=== PATIENT | male | born 1995 | race Caucasian/White ===

== ENCOUNTER 2022-08-02 11:58 | Emergency (ER) | payer SELFPAY ==
[2022-08-02 12:20] VITALS: BP 114/72; PULSE 85; RESP 14; TEMP 36.8; O2SAT 96; BMI 25.8
[2022-08-02 12:47] LABS: UTC Strep Screen (Rapid) Negative (Negative)
[2022-08-02 12:48] LABS: UTC Influenza A Antigen Negative (Negative); UTC Influenza B Antigen Negative (Negative)
--- NOTE | 2022-08-02 13:19 | EXP.UTC ---
Discharge Plan Disposition Patient Disposition: Home, Self-Care Condition: Good Prescriptions Prescriptions: New azithromycin [Zithromax Z-Manjinder] 250 mg tablet See Rx Instructions .ROUTE .COMPLEX 5 Days Qty: 6 0RF Rx Instructions: For 250 mg dose pack: take 500 mg today (day 1), then 250 mg for 4 days (days 2-5) methylprednisolone [Medrol (Manjinder)] 4 mg tablets,dose pack See Rx Instructions .Route .COMPLEX 6 Days Qty: 21 0RF Rx Instructions: taper pack; Referrals Follow up/Referrals: Provider,Referral, MD [Primary Care Provider] - See instructions Activity Restrictions/Add. Instructions Additional Instructions/Restrictions: *Monitor Temp, Over the counter Motrin or Tylenol as directed/as needed Tylenol every 4 hours and Motrin every 6 hours (as long as your family doctor has told you that you can take it) for fever or pain. and straight to ER if unable to lower temp less than 101.0 after medication given *Warm salt water gargles may help to soothe the throat *Throat Lozenges? *Warm fluids like tea with honey may help to soothe the throat? *Sleep elevated *Humidifier/Vaporizer Your throat swab was sent for culture. Those results are typically sent to your primary care. Be sure to follow up in 2-3 days with your family doctor/primary care physician if no improvement so they can review those result and treat if necessary. If you don?t have a primary care doctor, I recommend you get one but in the mean time, you will have to return to a walk in clinic Follow up IMMEDIATELY for new or worsening symptoms or no Noticeable improvement over the next 48-72 hours. 911 for difficulty breathing or swallowing Clinical Impressions Clinical Impression: Acute bacterial tonsillitis Instructions Patient Instructions: Sore Throat, Methylprednisolone, Azithromycin Discharge ED Provider: Vicki Negron [facility] General Stated complaint: Sore throat Mode of Arrival: Ambulatory Source of Information: Patient Limitations: No Limitations Time Seen by Provider: 08/02/22 13:20 Description of Symptoms (Recalled from Triage Doc. by RN): PATIENT C/O SORE THROAT X 2 DAYS HEENT Symptoms (Recalled from RN notes): Yes Resp Symptoms (Recalled from RN notes): No Skin Symptoms (Recalled from RN notes): No MS Symptoms (Recalled from RN notes): No Functional Status (Recalled from RN notes): WNL History of Present Illness Provider Complaint: Patient states that he has been having sore throat for the last couple of days States that he feels like his tonsils are almost touching and hurts when he swallows Related Data Previous Rx's Medication Instructions Recorded azithromycin 250 mg tablet See Rx Instructions PO .COMPLEX 5 08/02/22 (Zithromax Z-Manjinder) days #6 tabs methylprednisolone 4 mg tablets in See Rx Instructions .Route 08/02/22 a dose pack (Medrol (Manjinder)) .COMPLEX 6 days #21 tabs Allergies Allergy/AdvReac Type Severity Reaction Status Date / Time No Known Allergies Allergy Verified 08/02/22 12:32 Worker's Comp Is this a Worker's Comp case?: No [facility] Medical History (Updated 08/02/22 @ 13:23 by Vicki Negron APRN) No significant past medical history Social History (Updated 08/02/22 @ 12:31 by Evette Mccord RN) Smoking Status: Unknown if ever smoked alcohol intake: never current occupational status: other Travel in the last 8 weeks: None ROS Obtained: Yes All systems reviewed & no additional complaints except as documented and Yes Systems reviewed as appropriate & no additional complaints except as documented Constitutional Constitutional: Reports system reviewed and no additional complaints, except as documented and Reports as per HPI ENT Ears, Nose, Mouth, and Throat: Reports system reviewed and no additional complaints, except as documented, Reports as per HPI and Reports sore throat Cardiovascular Cardiovascular: Reports system reviewed and no additional
[2022-08-02 13:33] VITALS: BP 114/72; PULSE 85; RESP 14; TEMP 36.8; O2SAT 96
== END 2022-08-02 13:42 | disposition home or self-care (01) ==
PROVIDERS: Emergency Provider Nurse Practitioner
DX: J03.80 Acute tonsillitis due to other specified organisms (principal); Z79.52 Long term (current) use of systemic steroids
CPT/HCPCS: 87804; 87880; 99213; G0463